=== PATIENT | male | born 1995 | race Caucasian/White ===

== ENCOUNTER 2021-12-01 14:01 | Observation (INO) ==
[2021-12-01] MEDS ORDERED: Naloxone 0.4 MG/ML INJ IVP PRN (18:28)
[2021-12-01] MEDS: Morphine Sulfate 2 MG/ML SYRINGE IVP PRN ×2 (18:49→20:46)
[2021-12-01] MEDS: 0.9 % Sodium Chloride 1,000 ML IVC SCH (20:49)
[2021-12-02] MEDS: Morphine Sulfate 2 MG/ML SYRINGE IVP PRN ×4 (00:11→08:34)
[2021-12-02] MEDS ORDERED: *HR* LORazepam 2 MG/ML VIAL IVP ONE (01:33)
[2021-12-02 02:16] LABS: Basophils % 0.4 %; Eosinophils # 0.1 K/mcL (0.0-0.6); Eosinophils % 0.7 %; Hematocrit 38.5 % (37.5-50.1); Hemoglobin 13.2 g/dL (12.9-16.9); Immature Granulocytes % 0.1 % (0-4); Lymphocytes # 1.8 K/mcL (0.6-4.6); Mean Corpuscular HGB Conc 34.3 g/dL (31.6-35.5); Mean Corpuscular Hemoglobin 30.2 pg (28.0-33.3); Mean Corpuscular Volume 88.1 fL (83.0-100.0); Mean Platelet Volume 10.3 fL (9.4-12.4); Monocytes % 13.5 %; Neutrophils # 4.6 K/mcL (1.6-8.9); Platelet Count 225 K/mcL (140-400); Red Blood Count 4.37 M/mcL (4.19-5.50); Red Cell Distribution Width 11.5 % (11.5-14.5); Segmented Neutrophils % 61.3 %; White Blood Count 7.5 K/mcL (4.3-11.1)
[2021-12-02 02:36] LABS: BUN/Creatinine Ratio 9 (6-26); Blood Urea Nitrogen 8 mg/dL (6-20); Calcium 8.8 mg/dL (8.6-10.3); Carbon Dioxide 24 mEq/L (23-29); Chloride 105 mEq/L (98-107); Creatine Kinase 702 Units/L (30-223); Glucose 100 mg/dL (70-105); Osmolality,Calculated 280 (280-300); Sodium 136 mEq/L (136-145); eGFR For African Americans > 60 (> 60); eGFR For Non-African Americans > 60 (> 60)
[2021-12-02] MEDS: 0.9 % Sodium Chloride 1,000 ML IVC SCH (03:04)
[2021-12-02] MEDS ORDERED: *HR* FentaNYL (PF) 100 MCG/2 ML VIAL IVP PRN (10:11)
[2021-12-02] MEDS ORDERED: Ondansetron 4 MG/2 ML VIAL IVP PRN ×2 (10:11→16:51)
[2021-12-02] MEDS ORDERED: *HR* HYDROmorphone PF 0.5 MG/0.5 ML SYRINGE IVP PRN (10:11)
[2021-12-02] MEDS ORDERED: *HR* HYDROmorphone 2 MG/ML SYRINGE IVP ONE (10:36)
[2021-12-02] MEDS ORDERED: Famotidine 20 MG/2 ML VIAL IVP ONE (10:38)
[2021-12-02] MEDS ORDERED: Acetaminophen IV 1,000 MG/100 ML BAG IVPB ONE (10:38)
[2021-12-02] MEDS ORDERED: *HR* FentaNYL (PF) 100 MCG/2 ML VIAL ONE (10:46)
[2021-12-02] MEDS ORDERED: *HR* HYDROMORPHONE 2 MG/ML VIAL ONE (10:47)
[2021-12-02] MEDS ORDERED: Ondansetron 4 MG/2 ML VIAL ONE (10:50)
[2021-12-02] MEDS ORDERED: *HR* Midazolam HCl 2 MG/2 ML VIAL ONE (10:50)
[2021-12-02] MEDS ORDERED: Lidocaine -MPF 2% 5 ML VIAL ONE (10:50)
[2021-12-02] MEDS ORDERED: *HR* Propofol 200 MG/20 ML VIAL IVP ONE (10:51)
[2021-12-02] MEDS ORDERED: CeFAZolin Syr 2,000MG/20 ML 2,000 MG/20 ML SYRINGE IVPB ONE (11:00)
[2021-12-02] MEDS: Ringers Solution, Lactated 1,000 ML IVC SCH (11:06)
[2021-12-02] MEDS ORDERED: EPHEDrine 50 MG/ML VIAL ONE (12:26)
[2021-12-02] MEDS: *HR* OxyCODONE Immed Rel 5 MG TABLET PO PRN ×2 (15:26→19:38)
[2021-12-02] MEDS: *HR* HYDROmorphone (PF) 1 MG/ML SYRINGE IVP PRN ×2 (18:13→21:20)
[2021-12-02] MEDS: CeFAZolin 2,000 MG/120 ML BAG IVPB SCH (18:55)
[2021-12-03] MEDS: *HR* OxyCODONE Immed Rel 5 MG TABLET PO PRN ×5 (00:38→21:21)
[2021-12-03] MEDS: CeFAZolin 2,000 MG/120 ML BAG IVPB SCH (03:56)
[2021-12-03] MEDS: *HR* HYDROmorphone (PF) 1 MG/ML SYRINGE IVP PRN ×2 (03:58→10:10)
[2021-12-03] MEDS: *HR* Enoxaparin 30 MG/0.3 ML SYRINGE SQ SCH ×2 (08:16→21:21)
[2021-12-03 09:18] LABS: Hematocrit 38.7 % (37.5-50.1); Hemoglobin 13.5 g/dL (12.9-16.9)
[2021-12-03] MEDS: Gabapentin 100 MG CAPSULE PO SCH ×2 (15:04→21:21)
[2021-12-03] MEDS: Acetaminophen 325 MG TABLET PO SCH (17:50)
[2021-12-03] MEDS: Ketorolac 30 MG/ML VIAL IVP SCH (17:51)
[2021-12-04] MEDS: Ketorolac 30 MG/ML VIAL IVP SCH ×3 (02:13→12:33)
[2021-12-04] MEDS: Acetaminophen 325 MG TABLET PO SCH ×3 (02:13→12:35)
[2021-12-04 05:20] LABS: Basophils % 0.2 %; Eosinophils % 0.1 %; Hematocrit 40.5 % (37.5-50.1); Hemoglobin 13.9 g/dL (12.9-16.9); Immature Granulocytes % 0.3 % (0-4); Lymphocytes # 1.4 K/mcL (0.6-4.6); Lymphocytes % 15.7 %; Mean Corpuscular HGB Conc 34.3 g/dL (31.6-35.5); Mean Corpuscular Hemoglobin 30.3 pg (28.0-33.3); Mean Corpuscular Volume 88.4 fL (83.0-100.0); Mean Platelet Volume 10.7 fL (9.4-12.4); Monocytes # 1.4 K/mcL (0.0-1.3); Monocytes % 15.7 %; Neutrophils # 5.9 K/mcL (1.6-8.9); Platelet Count 221 K/mcL (140-400); Red Blood Count 4.58 M/mcL (4.19-5.50); Red Cell Distribution Width 11.5 % (11.5-14.5); White Blood Count 8.7 K/mcL (4.3-11.1)
[2021-12-04 05:37] LABS: BUN/Creatinine Ratio 9 (6-26); Blood Urea Nitrogen 10 mg/dL (6-20); Calcium 9.4 mg/dL (8.6-10.3); Carbon Dioxide 26 mEq/L (23-29); Chloride 97 mEq/L (98-107); Glucose 102 mg/dL (70-105); Osmolality,Calculated 275 (280-300); Potassium 3.8 mEq/L (3.5-5.1); Sodium 133 mEq/L (136-145); eGFR For African Americans > 60 (> 60); eGFR For Non-African Americans > 60 (> 60)
[2021-12-04] MEDS: Ringers Solution, Lactated 1,000 ML IVC SCH ×2 (07:28→09:51)
[2021-12-04] MEDS: Gabapentin 100 MG CAPSULE PO SCH (09:51)
[2021-12-04] MEDS: *HR* OxyCODONE Immed Rel 5 MG TABLET PO PRN (09:51)
[2021-12-04] MEDS: *HR* Enoxaparin 30 MG/0.3 ML SYRINGE SQ SCH (09:52)
[2021-12-04 15:22] VITALS: BP 112/63; PULSE 81; TEMP 97.6; O2SAT 95
== END 2021-12-04 17:23 | disposition home or self-care (01) ==
LOC: 4WAOSI → SUATTDRO 19:04
PROVIDERS: ADMIT Family Medicine; ATTEND Internal Medicine